=== PATIENT | male | born 1940 | race Caucasian/White ===

== ENCOUNTER 2016-12-12 14:19 | Inpatient (IN) ==
[2016-12-12] MEDS ORDERED: POTASSIUM CHLORIDE RIDER 10 MEQ in PREMIX 1 EACH IV PRN (16:30)
[2016-12-12] MEDS ORDERED: ACETAMINOPHEN 325 MG TABLET PO PRN (16:30)
[2016-12-12] MEDS ORDERED: MAGNESIUM SULF RIDER 2 GM in PREMIX 1 EACH IV PRN (16:30)
[2016-12-12] MEDS ORDERED: SODIUM CHLORIDE 0.9% 1,000 ML IV SCH (16:30)
[2016-12-12] MEDS ORDERED: MAGNESIUM SULF RIDER 4 GM in PREMIX 1 EACH IV PRN (16:30)
[2016-12-12] MEDS ORDERED: ONDANSETRON 4 MG/2 ML VIAL IV PRN (16:30)
[2016-12-12] MEDS ORDERED: BISACODYL 5 MG TABLET PO PRN (16:30)
[2016-12-12] MEDS ORDERED: HYDROmorphone 2 MG/1 ML VIAL IV PRN (16:41)
--- NOTE | 2016-12-12 16:44 | Hospitalist History & Physical ---
Assessment and Plan (1) Gastroenteritis Status: Acute Assessment and plan: Nausea vomiting and diarrhea thought to be secondary to gastroenteritis. Patient already received 3 L of normal saline and [facility] stat lactic acid. Hypotension improved with hydration. Start Cipro IV. Stat lactic acid. Suspect septic shock. Stool cultures for WBC, culture and C. difficile. Current Visit: Yes (2) Common bile duct dilation Status: Acute Assessment and plan: Dilated common bile duct on CT from [facility] measuring 14.7 mm. We will get a stat ultrasound or dilation of ducts and possible MRCP in am. Dr Rodriguez to see. patient on plavix Current Visit: Yes (3) Coronary artery disease Status: Acute Assessment and plan: cont asa, hold plavix Current Visit: No (4) Chronic back pain greater than 3 months duration Status: Acute Assessment and plan: chronic morphine 100 mg po bid, dilaudid for breakthrough pain Current Visit: No (5) Pulmonary fibrosis Status: Acute Assessment and plan: per abdominal ct Current Visit: Yes (6) COPD (chronic obstructive pulmonary disease) Status: Acute Assessment and plan: duoneb and oxygen Current Visit: Yes (7) Pulmonary hypertension, moderate to severe Status: Acute Assessment and plan: severe pulmonary htn last echo 2014 ef 65% with diastolic dysfunction, pap of 84 Current Visit: Yes (8) Chronic diastolic (congestive) heart failure Status: Acute Assessment and plan: bnp, cont hydration, repeat echo in am Current Visit: Yes (9) Hypotension Status: Acute Assessment and plan: improved with 3 liters of hydration, lactic acid stat, blood cx times 2, ua, cxr , cipro IV Current Visit: Yes History of Present Illness Chief complaint: nausea, vomiting and diarrhea History of present illness: Mr. Paredes is a 76 year old male with a history of hypertension and chronic pain presents to the emergency room at [facility] with complaints of weakness, poor appetite and nausea vomiting diarrhea. 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 He is normally up and ambulatory taking his dogs for walks. He had gone on vacation and he had been hardly eating for the last 3 days. He is having generalized weakness with profuse diarrhea, nausea and vomiting. [facility] did a chest x-ray which shows a thoracic transdermal stimulator. I also did a CT of the abdomen which showed a dilated common bile duct of 14.7 mm, pulmonary fibrosis and COPD with a distended gallbladder. Home Medications Medication Instructions Recorded Confirmed Type Aspirin EC Tab 81 mg PO DAILY #30 tablet 09/18/14 12/12/16 Rx Carvedilol [Coreg] 3.125 mg PO BID #60 tablet 09/18/14 12/12/16 Rx Clopidogrel [Plavix] 75 mg PO DAILY 12/12/16 12/12/16 History Docusate Sodium Cap [Colace Cap] 100 mg PO DAILY PRN 12/12/16 12/12/16 History Duloxetine HCl [Cymbalta] 60 mg PO BID 12/12/16 12/12/16 History Ergocalciferol (Vitamin D2) 50,000 unit PO Q7DAY 12/12/16 12/12/16 History [Vitamin D2] Furosemide Tab [Lasix Tab] 20 mg PO DAILY 12/12/16 12/12/16 History Metoclopramide Tab [Reglan Tab] 30 mg PO ACHS 12/12/16 12/12/16 History Mirtazapine 30 mg PO BEDTIME 12/12/16 12/12/16 History Morphine Sulfate [Morphine Sulfate 100 mg PO BID 12/12/16 12/12/16 History ER] Omeprazole 20 mg PO BID 12/12/16 12/12/16 History Ondansetron Tab [Zofran Tab] 4 mg PO Q4HR PRN 12/12/16 12/12/16 History Potassium Chloride Cap/Tab [K Dur] 20 meq PO DAILY 12/12/16 12/12/16 History Rosuvastatin [Crestor] 10 mg PO DIRECTED 12/12/16 12/12/16 History Allergies Allergy/AdvReac Type Severity Reaction Status Date / Time lisinopril Allergy Severe ANAPHYLAXIS Verified 12/12/16 16:38 Medical,Surgical,& Family Hx - Medical History Cardio: History of: [facility] (2), Cardiovascular Problems (Carotid stenosis) Neurology: History of: Neurological Problems (carotid disease.) Endocrine: No history of: Diabetes Mellitus (IDDM) Respiratory: History of: Bronchitis, COPD, Respiratory Problems (Pulmonary fibrosis) Musculoskeletal: History of: Back/Neck Problems (chronic back pain treated with epidural and nerve ablation), Herniated Disk, Musculoskeletal Problems Hematology: History of: Anemia (peripheral vascular stents, pain stimulator inserted), Clotting Problems (patient reports having stents put in left leg for blood clots.) - Surgical History Orthopedic Surgeries: Surgical HX of;: Total Knee Replacement (Right) Additional Surgical History: Stent to left leg - Family History Family History: Reports;: Family Cancer - Social History Smoking Status: Former smoker Frequency of Alcohol Use: None (Used to drink but quit 40 years ago) Marital Status: Single Lives With:: Alone Functional capacity: independent ambulation - Constitutional Constitutional: Present: fatigue, weakness, weight loss. Absent: fever(s), frequent falls, headache(s) - EENT Eyes: Absent: blurry vision, diplopia Ears: Present: decreased hearing. Absent: ear discharge Nose, mouth and throat: Absent: headache(s), sore throat - Cardiovascular Cardiovascular: Present: dyspnea, dyspnea on exertion. Absent: chest pain at rest, edema - Respiratory Respiratory: Present: dyspnea, dyspnea on exertion. Absent: cough, hemoptysis, change in phlegm color - Gastrointestinal Gastrointestinal: Present: diarrhea, nausea, vomiting. Absent: heartburn - Genitourinary Genitourinary: Present: dysuria. Absent: difficulty urinating - Musculoskeletal Musculoskeletal: Present: back pain - Neurological Neurological: Present: confusion. Absent: focal weakness, headache(s), syncope - Psychiatric Psychiatric: Present: depression. Absent: anxiety - Endocrine Endocrine: Present: cold intolerance, fatigue, polydipsia, polyuria. Absent: heat intolerance - Hematologic/Lymphatic Hematologic/Lymphatic: Present: easy bleeding, easy bruising Exam - Constitutional General appearance: no acute distress, under weight - Head Head exam: Present: normal inspection, normocephalic - Eye Eye exam: Present: EOMI. Absent: scleral icterus Pupils: Present: VERITO, normal accommodation - ENT ENT exam: Present: normal exam, normal external ear exam - Neck Neck exam: Absent: lymphadenopathy, thyromegaly - Respiratory Respiratory exam: Present: decreased breath sounds. Absent: rhonchi, wheezes - Cardiovascular Cardiovascular exam: Present: tachycardia. Absent: systolic murmur - GI/Abdominal GI/Abdominal exam: Present: normal bowel sounds, soft, other (liver enlarged ). Absent: tenderness - Extremities Exam Extremities exam: Absent: normal inspection, normal capillary refill - Neurological Exam Neurological exam: Present: alert, oriented X3, CN II-XII intact, reflexes normal. Absent: motor sensory deficit - Psychiatric Psychiatric exam: Present: depressed, flat affect - Skin Skin exam: Present: normal color, warm Results - Labs Labs: Outside records from [facility] WBC 5.4 hemoglobin 14.5, platelets 157, glucose 154, BUN 15, creatinine 1, calcium 8.2, sodium 133, potassium 3, chloride 97, bicarbonate 25, AST 25, ALT 24, total bili 0.5, proBNP 752, PTT 23, INR 1.08, - Diagnostic Findings Procedure: Chest x-ray: report reviewed by me (Thoracic transdermal stimulator, substernal goiter,), CT Abdomen and Pelvis: report reviewed by me (COPD, pulmonary fibrosis, distended gallbladder and common bile duct, ERCP needed for additional investigation with a dilated common bile duct of 14.7 mm, bilateral inguinal hernias, diverticulosis, neurostimulator,), CT: report reviewed by me ( Head CT normal aging of the brain)
--- NOTE | 2016-12-12 17:08 | XRay Report ---
XR chest 1V portable Indication: Shortness of breath. Chest one view: Comparison 09/17/2014. Epidural stimulators of the mid thoracic spine are again shown. Heart has decreased slightly in size, but at the same time, there is increased pulmonary vascular congestion with diffusely coarsened interstitial markings of the lungs. Part of this includes diffuse peribronchial thickening. No focal pneumonia shown. Lung volumes are low. Impression: Diffuse interstitial lung disease with low lung volumes, favor pulmonary edema superimposed on airways disease such as bronchitis. PROCEDURE INTERPRETED AT [facility] DEPARTMENT OF RADIOLOGY Final Report Signed by: Zachery Ulrich M.D.
--- NOTE | 2016-12-12 17:41 | Ultrasound Report ---
Exam: US abdomen Indication: Dilated common bile duct on recent CT. Comparison: None Technique: Using a transcutaneous probe, multiple grayscale and color Doppler images of the liver, gallbladder, spleen, pancreas, right kidney, left kidney, aorta, and inferior vena cava were captured and stored. Findings: Liver: The liver measures 13.7 . No focal mass is clearly demonstrated on the submitted images of the liver. Echotexture appears nearly isoechoic to the right renal cortex. Color flow is present within the interrogated portal and hepatic venous structures. Gallbladder: No gallstones are clearly demonstrated within the gallbladder. The gallbladder wall measures 3.8 mm. The common bile duct measures 6 mm. Pancreas: Pancreas is not identified secondary to bowel gas. Spleen: The spleen demonstrates no significant abnormality. The spleen measures: Length 10.9 cm cm Width 5.2 cm cm. Right kidney: The right kidney demonstrates no evidence of acute pathology. No hydronephrosis or perinephric fluid collection is present. The right kidney measures: Length: 9.6 cm cm Width: 4 cm cm AP: 4.6 cm cm. Left kidney: Left kidney demonstrates no evidence of acute pathology. No hydronephrosis or perinephric fluid collection is present. The left kidney measures: Length: 9.4 cmcm Width 4.6 cm cm AP 4.7 cmcm. Aorta: The aorta is not identified secondary to bowel gas. Inferior vena cava: Vena cava is not identified secondary to bowel gas. Conclusion: 1. Compatible given history, the extrahepatic bile duct is minimally enlarged. No cholelithiasis or choledocholithiasis is clearly demonstrated. Gallbladder wall thickening is a nonspecific finding and could reflect evidence of acute or chronic cholecystitis. 2. Pancreas is not visualized secondary to bowel gas. PROCEDURE INTERPRETED AT [facility] DEPARTMENT OF RADIOLOGY Final Report Signed by: Dr. Morgan Weiss
[2016-12-12 17:48] LABS: Apearance,Urine CLEAR (Clear); Bilirubin,Urine Negative (Negative); Blood, Urine Moderate mg/dL (Negative); Glucose,Urine (UA) Negative (Negative); Ketones,Urine Negative (Negative); Mucus,Urine Occasional /LPF (Occasional); Nitrite,Urine Negative (Negative); Protein,Urine Negative; RBC,Urine 73 /HPF (0-4); Urine Color Yellow (Yellow); Urine Specific Gravity 1.015 (1.001-1.035); Urine Urobilinogen < 2.0 EU/DL (0.2-1.0); WBC,Urine <1 /HPF (0-6)
[2016-12-12 17:50] LABS: Basophils % 0.2 % (0.0-0.8); Hematocrit 37.7 VOL% (42.0-52.0); Hemoglobin 13.3 GM/DL (14.0-18.0); Immature Granulocytes % 0.5 %; Immature Granulocytes Absolute 0.02 #; Lymphocytes # 0.5 10*3/uL (1.4-4.0); Lymphocytes % 12.2 % (21.2-54.2); Mean Corpuscular HGB Conc 35.3 GM/DL (32-36); Mean Corpuscular Hemoglobin 33 PG (27-34); Mean Corpuscular Volume 92.9 FL (87-102); Mean Platelet Volume 9.9 FL (9.6-12.0); Monocytes # 0.5 10*3/uL (0.11-0.8); Neutrophils # 3.1 10*3/uL (1.4-7.4); Neutrophils % 75.1 % (38.7-73.9); Platelet Count 136 T/CUMM (130-400); Red Blood Count 4.06 MC/CUMM (3.8-5.5); Red Cell Distribution Width 13.6 % (9.3-17.3); White Blood Count 4.2 T/CUMM (4-12)
[2016-12-12 17:59] LABS: ABG Base Excess -1.2 MMOL/L (-2.5-2.5); ABG HCO3 23.2 MMOL/L (20-26); ABG Oxygen Saturation 90.9 % (95-100); ABG PCO2 33.2 MM HG (35-48); ABG PH 7.433 (7.35-7.45); ABG PO2 62.6 MM HG (80-95); ABG TCO2 19.2 MMOL/L (23-27); Allen Test Positive
[2016-12-12 18:03] LABS: INR 1.1; PT Patient Result 11.6 SECS; Partial Thromboplastin Time 28.2 SECS (0-40)
[2016-12-12] MEDS: CIPROFLOXACIN INJ 400 MG in PREMIX 1 EACH IV SCH (18:13)
[2016-12-12] MEDS: PANTOPRAZOLE 40 MG TABLET PO SCH (18:14)
[2016-12-12 18:35] LABS: Albumin 3.1 G/DL (3.4-5.0); Magnesium 1.8 MG/DL (1.8-2.4); Osmolality,Calculated 272.8 MOS/KG (273-304); Potassium 3.1 MMOL/L (3.5-5.1); Thyroid Stimulating Hormone 0.911 uIU/ml (0.358-3.74); Total Protein 5.9 G/DL (6.4-8.3)
[2016-12-12] MEDS: ALBUTEROL/IPRATROPIUM 3 ML NEB RESP TX SCH (19:56)
[2016-12-12] MEDS ORDERED: POTASSIUM CHLORIDE INJ 40 MEQ in SODIUM CHLORIDE 0.9% 1,000 ML IV SCH (20:05)
[2016-12-12] MEDS ORDERED: NOREPINEPHRINE 8 MG in SODIUM CHLORIDE 0.9% 242 ML IV SCH (20:30)
[2016-12-12 21:34] LABS: Band Neutrophils 7 % (0-10); Lymphocytes 13 % (20-55); Metamyelocytes 1 %; Platelet Estimate Decreased; Segmented Neutrophils 68 % (50-85); Total Cells Counted 100
[2016-12-12 21:35] LABS: Hypochromasia 2+
[2016-12-12] MEDS: POTASSIUM CHLORIDE RIDER 10 MEQ in PREMIX 1 EACH IV SCH (22:09)
[2016-12-12] MEDS: SODIUM CHLOR 0.9% KCL 40 MEQ 40 MEQ/1,000 ML BAG IV SCH (22:10)
[2016-12-12] MEDS: MIRTAZAPINE 15 MG TABLET PO SCH (22:10)
[2016-12-12] MEDS: MORPHINE ER 100 MG TABLET PO SCH (22:10)
[2016-12-12] MEDS: ENOXAPARIN 40 MG/0.4 ML SYRINGE SUBCUT SCH (22:20)
[2016-12-13] MEDS: ALBUTEROL/IPRATROPIUM 3 ML NEB RESP TX SCH ×4 (00:45→20:22)
[2016-12-13] MEDS: POTASSIUM CHLORIDE RIDER 10 MEQ in PREMIX 1 EACH IV SCH ×5 (00:45→08:12)
[2016-12-13 03:47] LABS: Basophils % 0.2 % (0.0-0.8); Hematocrit 38.2 VOL% (42.0-52.0); Immature Granulocytes % 0.5 %; Immature Granulocytes Absolute 0.02 #; Lymphocytes # 0.7 10*3/uL (1.4-4.0); Lymphocytes % 14.9 % (21.2-54.2); Mean Corpuscular Hemoglobin 32 PG (27-34); Mean Platelet Volume 9.6 FL (9.6-12.0); Monocytes # 0.6 10*3/uL (0.11-0.8); Monocytes % 14.2 % (1.7-12.7); Neutrophils # 3.1 10*3/uL (1.4-7.4); Neutrophils % 70.2 % (38.7-73.9); Platelet Count 112 T/CUMM (130-400); Red Blood Count 4.02 MC/CUMM (3.8-5.5); Red Cell Distribution Width 13.7 % (9.3-17.3); White Blood Count 4.4 T/CUMM (4-12)
[2016-12-13 04:24] LABS: Bilirubin,Total 0.4 MG/DL (0.2-1.0); Osmolality,Calculated 273.7 MOS/KG (273-304); Potassium 3.2 MMOL/L (3.5-5.1); Risk Ratio 2.89; Total Protein 5.7 G/DL (6.4-8.3); VLDL CHOLESTEROL 21.2 MG/DL
[2016-12-13] MEDS: CIPROFLOXACIN INJ 400 MG in PREMIX 1 EACH IV SCH ×2 (05:11→16:12)
--- NOTE | 2016-12-13 06:45 | EKG Report ---
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
--- NOTE | 2016-12-13 07:17 | Ultrasound Report ---
US carotid duplex BI Indication: Carotid stenosis. Comparison: None. Technique: Multiple longitudinal and transverse real-time sonographic images of the bilateral carotid arterial systems are obtained with grayscale, spectral, and color Doppler analysis. Findings: Peak systolic velocities within the right CCA, proximal ICA, and distal ICA are 61, 119, and 119 cm/s respectively. Peak systolic velocities within the left CCA, proximal ICA, and distal ICA are 87, 77, and 118 cm/s respectively. ICA/CCA ratios on the right and left are 1.9 and 1.4 respectively. Antegrade flow demonstrated within the bilateral vertebral arteries. Grayscale imaging demonstrates mild bilateral atherosclerotic plaque. IMPRESSION: No convincing sonographic evidence of significant (50% or greater) narrowing of either cervical internal carotid artery. Indirect NASCET criteria utilized. PROCEDURE INTERPRETED AT [facility] DEPARTMENT OF RADIOLOGY Final Report Signed by: Dr Tang Peters
--- NOTE | 2016-12-13 09:42 | Hospitalist Progress Note ---
Assessment and Plan (1) Gastroenteritis Status: Acute Assessment and plan: Stool Chi growing gram-negative rods, continue Cipro IV moved to the floor and continue IV fluids. Current Visit: Yes (2) Common bile duct dilation Status: Acute Assessment and plan: Ultrasound shows minimal ductal dilatation. Total bili and liver enzymes remain normal Current Visit: Yes (3) Coronary artery disease Status: Acute Assessment and plan: restart asa and plavix Current Visit: No (4) Chronic back pain greater than 3 months duration Status: Acute Assessment and plan: chronic morphine 100 mg po bid, dilaudid for breakthrough pain Current Visit: No (5) Pulmonary fibrosis Status: Acute Assessment and plan: Chest x-ray shows diffuse interstitial disease. Current Visit: Yes (6) COPD (chronic obstructive pulmonary disease) Status: Acute Assessment and plan: duoneb and oxygen Current Visit: Yes (7) Pulmonary hypertension, moderate to severe Status: Acute Assessment and plan: severe pulmonary htn last echo 2014 ef 65% with diastolic dysfunction, pap of 84 Current Visit: Yes (8) Chronic diastolic (congestive) heart failure Status: Acute Assessment and plan: bnp 100, cont hydration, repeat echo pending Current Visit: Yes (9) Hypotension Status: Acute Assessment and plan: resolved Current Visit: Yes (10) Hypokalemia Status: Acute Assessment and plan: Still being replaced. Will repeat potassium after last finished with last rider Current Visit: Yes Hospitalist: Subjective Interval history: Patient having less diarrhea today. Complaining of a lot of back pain which is a chronic issue for him. I do not want him overly sedated due to his poor lung quality. Patient looks like he just had a gastroenteritis and looks stable we will move him out of the CCU today. Exam - Constitutional Vitals: Period Temp Pulse Resp BP Sys/[place] Pulse Ox Last 24 Hr 97.5 F-98.4 F 80-98 18-24 79-143/55-88 87-100 Exam: Heart Rate-[RRR] Lungs-[diminished ] GI-[+bs soft, NT] Ext-[no edema] Neuro [Motor 5/5], [alert and oriented times 3] psych [normal mood and affect] General [no acute distress] Results - Labs CBC & BMP: 12/13/16 03:24 12/13/16 03:24 Lab Results: I have reviewed the past 24 hour labs Labs: Stool shows no WBCs, stool culture positive for gram-negative rods, stool is guaiac negative for blood, C. difficile is negative. - Diagnostic Findings Procedure: Ultrasound: report reviewed by me, pending (Gallbladder ultrasound shows mild extra biliary duct dilatation, gallbladder wall thickening noted), X- ray: pending
[2016-12-13] MEDS: ROSUVASTATIN 10 MG TABLET PO SCH (09:55)
[2016-12-13] MEDS: MORPHINE ER 100 MG TABLET PO SCH ×2 (09:55→20:57)
[2016-12-13] MEDS: PANTOPRAZOLE 40 MG TABLET PO SCH (09:55)
[2016-12-13] MEDS: CLOPIDOGREL 75 MG TABLET PO SCH (10:02)
[2016-12-13] MEDS: DULoxetine 30 MG CAPSULE PO SCH ×2 (10:02→20:57)
[2016-12-13] MEDS: ASPIRIN EC 81 MG TABLET PO SCH (10:02)
[2016-12-13] MEDS: SODIUM CHLOR 0.9% KCL 40 MEQ 40 MEQ/1,000 ML BAG IV SCH (13:18)
[2016-12-13] MEDS: POTASSIUM CHLORIDE 20 MEQ TABLET PO PRN ×3 (13:24→17:58)
[2016-12-13] MEDS: ENOXAPARIN 40 MG/0.4 ML SYRINGE SUBCUT SCH (16:12)
--- NOTE | 2016-12-13 20:12 | ECHO Report ---
Epifanio Paredes Exam Date: 12/13/2016 08:18 Referring Physician: Technologist: Nel Sales RDCS Age: 76 Ht (in): 67 Wt (lb): 171 Gender: M Exam Location: [facility] Echo Indications: Chronic diastolic (congestive) heart failure, Weakness, Gastronenteritis, Common bile duct dilation, CAD, Chronic back pain, COPD, Pulmonary fibrosis, Pulmonary htn BP: 143 / 88 HR: 87 Rhythm: Sinus Technical Quality: Fair IMPRESSIONS Normal LV systolic function, ejection fraction 65%. Grade 1/4 diastolic dysfunction. Mild biatrial enlargement. Mild mitral, aortic, tricuspid regurgitation. Aortic sclerosis without stenosis. MEASUREMENTS (Male / Female) Normal Values 2D ECHO LV Diastolic Diameter PLAX 4.7 cm 4.2 - 5.9 / 3.9 - 5.3 cm LV Systolic Diameter PLAX 2.9 cm LV Fractional Shortening PLAX 38.6 % IVS Diastolic Thickness 1.0 cm 0.6 - 1.0 / 0.6 - 0.9 cm LVPW Diastolic Thickness 1.0 cm 0.6 - 1.0 / 0.6 - 0.9 cm RV Internal Dim ED PLAX 3.3 cm Aortic Root Diameter 3.4 cm LA Systolic Diameter LX 4.4 cm 3.0 - 4.0 / 2.7 - 3.8 cm DOPPLER TR Peak Velocity 356.0 cm/s TR Peak Gradient 50.7 mmHg FINDINGS Left Ventricle Normal left ventricular cavity size. Normal left ventricular wall thickness. Left ventricular ejection fraction is estimated at 65 %. Right Ventricle Mildly increased right ventricular size. Right Atrium Mildly increased right atrial size. Left Atrium Mildly increased left atrial size. Mitral Valve Morphologically normal mitral valve. Mild mitral valve regurgitation. Aortic Valve Moderate aortic valve calcification. Mild aortic valve regurgitation. No aortic valve stenosis. Tricuspid Valve Morphologically normal tricuspid valve. Mild tricuspid valve regurgitation. Tricuspid regurgitation velocities suggest a PAP of 61 mmHg. Pulmonic Valve Morphologically normal pulmonic valve without significant stenosis. There is no pulmonic regurgitation. Pericardium Normal pericardium without effusion. Aorta Normal ascending aorta dimension. Pau Clark MD (Electronically Signed) Final Date: 13 December 2016 20:10
[2016-12-13] MEDS: MIRTAZAPINE 15 MG TABLET PO SCH (20:57)
[2016-12-13] MEDS ORDERED: NON-FORMULARY MEDICATION (Duloxetine Hcl [Cymbalta] 60 MG) PO SCH (21:00)
[2016-12-14] MEDS: ALBUTEROL/IPRATROPIUM 3 ML NEB RESP TX SCH ×4 (00:27→20:09)
[2016-12-14 00:46] LABS: Basophils % 0.4 % (0.0-0.8); Eosinophils % 0.4 % (0.00-10.9); Hematocrit 36.2 VOL% (42.0-52.0); Hemoglobin 12.8 GM/DL (14.0-18.0); Immature Granulocytes % 0.4 %; Immature Granulocytes Absolute 0.01 #; Lymphocytes # 0.6 10*3/uL (1.4-4.0); Lymphocytes % 19.4 % (21.2-54.2); Mean Corpuscular HGB Conc 35.4 GM/DL (32-36); Mean Corpuscular Hemoglobin 33 PG (27-34); Mean Corpuscular Volume 92.6 FL (87-102); Monocytes # 0.5 10*3/uL (0.11-0.8); Monocytes % 17.3 % (1.7-12.7); Neutrophils # 1.8 10*3/uL (1.4-7.4); Neutrophils % 62.1 % (38.7-73.9); Platelet Count 112 T/CUMM (130-400); Red Blood Count 3.91 MC/CUMM (3.8-5.5); Red Cell Distribution Width 13.7 % (9.3-17.3); White Blood Count 2.8 T/CUMM (4-12)
[2016-12-14 01:07] LABS: Alanine Aminotransferase 17 U/L (16-61); Albumin 2.6 G/DL (3.4-5.0); Alkaline Phosphatase 65 U/L (45-117); Aspartate Amino Transferase 25 U/L (0-37); Bilirubin,Total < 0.39 MG/DL (0.2-1.0); Blood Urea Nitrogen 6 MG/DL (7-18); Calcium 7.8 MG/DL (8.5-10.1); Glucose 118 MG/DL (74-106); Osmolality,Calculated 281.1 MOS/KG (273-304); Potassium 3.2 MMOL/L (3.5-5.1); Sodium 142 MMOL/L (136-145); Total Protein 5.2 G/DL (6.4-8.3)
[2016-12-14] MEDS: SODIUM CHLOR 0.9% KCL 40 MEQ 40 MEQ/1,000 ML BAG IV SCH (01:38)
[2016-12-14 01:55] LABS: Band Neutrophils 1 % (0-10); Eosinophils 1 % (0-10); Lymphocytes 17 % (20-55); Segmented Neutrophils 71 % (50-85)
[2016-12-14 01:56] LABS: Platelet Estimate Adequate
[2016-12-14 01:57] LABS: Hypochromasia Slight; Total Cells Counted 100
[2016-12-14] MEDS ORDERED: POTASSIUM BICARB EFFERVESCENT 25 MEQ TABLET PO ONE ×3 (02:00→06:00)
[2016-12-14] MEDS: CIPROFLOXACIN INJ 400 MG in PREMIX 1 EACH IV SCH ×2 (04:07→16:21)
[2016-12-14] MEDS: PANTOPRAZOLE 40 MG TABLET PO SCH (09:12)
[2016-12-14] MEDS: MORPHINE ER 100 MG TABLET PO SCH ×2 (09:12→21:11)
[2016-12-14] MEDS: ASPIRIN EC 81 MG TABLET PO SCH (09:12)
[2016-12-14] MEDS: DULoxetine 30 MG CAPSULE PO SCH ×2 (09:12→21:11)
[2016-12-14] MEDS: CLOPIDOGREL 75 MG TABLET PO SCH (09:12)
--- NOTE | 2016-12-14 11:30 | Hospitalist Progress Note ---
Assessment and Plan (1) Gastroenteritis Status: Acute Assessment and plan: 1)GNR in stool- culture set up for stool pathogens, lab should have results tomorrow. On cipro. Diarrhea resolved, eating well. 2)tick between toes- no rash, no more fever, no headache, but he does have low platelets and WBC. Begin doxy. 3)hypokalemia- replacing and recheck pending. 4)hypotension- resolved 5)COPD/pHTN/puolmonary fibrosis- compensated 6)chronic back pain- on meds, no complaint this morning. Current Visit: Yes (2) Tick bite Status: Acute Current Visit: Yes (3) Pancytopenia Status: Acute Current Visit: Yes (4) Common bile duct dilation Status: Acute Current Visit: Yes (5) Pulmonary fibrosis Status: Acute Current Visit: Yes (6) COPD (chronic obstructive pulmonary disease) Status: Acute Current Visit: Yes (7) Pulmonary hypertension, moderate to severe Status: Acute Current Visit: Yes (8) Hypokalemia Status: Acute Current Visit: Yes Hospitalist: Subjective Interval history: Mr Paredes is feeling much beter and tolerated a regular diet this morning. He has been up and walked without ataxia using his cane. He has 2 GNR in stool culture, results pending. Also, the wound care nurse found a tick between 2 of his toes without any surrounding skin changes. It has been removed. Exam - Constitutional Vitals: Period Temp Pulse Resp BP Sys/[place] Pulse Ox Last 24 Hr 97.1 F-98.6 F 73-87 16-22 95-128/57-71 93-100 General appearance: normal weight, no acute distress - Head Head exam: Present: normocephalic, atraumatic - Eye Eye exam: Present: EOMI. Absent: scleral icterus - Respiratory Respiratory exam: Present: clear to auscultation bilaterally - Cardiovascular Cardiovascular exam: Present: regular rate and rhythm - GI/Abdominal GI/Abdominal exam: Present: normal bowel sounds, soft. Absent: tenderness - Extremities Exam Extremities exam: Absent: edema - Neurological Exam Neurological exam: Present: alert, oriented X3 - Psychiatric Psychiatric exam: Present: normal affect, normal mood - Skin Skin exam: Present: warm, dry. Absent: rash Results - Labs CBC & BMP: 12/14/16 00:16 12/14/16 00:16 Lab Results: I have reviewed the past 24 hour labs
[2016-12-14] MEDS: DOXYCYCLINE HYCLATE INJ 100 MG in SODIUM CHLORIDE 0.9% 100 ML IV SCH (13:38)
[2016-12-14] MEDS: ENOXAPARIN 40 MG/0.4 ML SYRINGE SUBCUT SCH (16:21)
[2016-12-14] MEDS: MIRTAZAPINE 15 MG TABLET PO SCH (21:11)
[2016-12-15] MEDS: DOXYCYCLINE HYCLATE INJ 100 MG in SODIUM CHLORIDE 0.9% 100 ML IV SCH ×2 (00:02→12:26)
[2016-12-15] MEDS: CIPROFLOXACIN INJ 400 MG in PREMIX 1 EACH IV SCH ×2 (06:34→16:00)
[2016-12-15 07:08] LABS: Basophils % 0.7 % (0.0-0.8); Eosinophils # 0.1 10*3/uL (0.0-0.87); Eosinophils % 1.4 % (0.00-10.9); Hemoglobin 13.3 GM/DL (14.0-18.0); Immature Granulocytes % 1.2 %; Immature Granulocytes Absolute 0.05 #; Lymphocytes % 23.1 % (21.2-54.2); Mean Corpuscular Hemoglobin 32 PG (27-34); Mean Corpuscular Volume 91.6 FL (87-102); Mean Platelet Volume 10.2 FL (9.6-12.0); Monocytes # 0.6 10*3/uL (0.11-0.8); Monocytes % 14.5 % (1.7-12.7); Neutrophils # 2.5 10*3/uL (1.4-7.4); Neutrophils % 59.1 % (38.7-73.9); Platelet Count 128 T/CUMM (130-400); Red Blood Count 4.15 MC/CUMM (3.8-5.5); White Blood Count 4.3 T/CUMM (4-12)
[2016-12-15] MEDS: ALBUTEROL/IPRATROPIUM 3 ML NEB RESP TX SCH ×3 (07:44→13:41)
[2016-12-15 07:47] LABS: Albumin 2.9 G/DL (3.4-5.0); Bilirubin,Total 0.7 MG/DL (0.2-1.0); Calcium 8.3 MG/DL (8.5-10.1); Osmolality,Calculated 281.1 MOS/KG (273-304); Potassium 3.2 MMOL/L (3.5-5.1); Total Protein 5.6 G/DL (6.4-8.3)
[2016-12-15 08:22] LABS: Band Neutrophils 1 % (0-10); Lymphocytes 20 % (20-55); Segmented Neutrophils 68 % (50-85); Total Cells Counted 100
[2016-12-15 08:23] LABS: Microcytosis Slight; Ovalocytes Slight; Platelet Estimate Adequate
[2016-12-15 08:24] LABS: Hypochromasia Slight
[2016-12-15] MEDS: ROSUVASTATIN 10 MG TABLET PO SCH (09:20)
[2016-12-15] MEDS: MORPHINE ER 100 MG TABLET PO SCH ×2 (09:20→21:09)
[2016-12-15] MEDS: DULoxetine 30 MG CAPSULE PO SCH ×2 (09:21→21:09)
[2016-12-15] MEDS: ASPIRIN EC 81 MG TABLET PO SCH (09:21)
[2016-12-15] MEDS: CLOPIDOGREL 75 MG TABLET PO SCH (09:21)
[2016-12-15] MEDS: PANTOPRAZOLE 40 MG TABLET PO SCH (09:21)
[2016-12-15] MEDS: POTASSIUM CHLORIDE 20 MEQ TABLET PO PRN (09:21)
--- NOTE | 2016-12-15 12:54 | Gastrointestinal Consult Note ---
<Josiane Barreto Liz - Last Filed: 12/15/16 12:48> Assessment and Plan (1) Abdominal pain Status: Acute Assessment and plan: 12/15-admitted 4 days ago with complaints of upper abdominal pain, nausea, vomiting and diarrhea. Initial report on CT scan as below, with dilated common bile duct and normal LFTs. Ultrasound on admission findings noted as below. LFTs remain unremarkable. Noted today to have positive for Salmonella on stool cultures with Cipro initiated. Vibramycin initiated for tick bite. Prior endoscopy done within the past [address] Rivera in [place]. Requesting results from [place] far ER visit prior to transfer as well as endoscopy records. Plan an addendum to followed by Dr. Rodriguez. Current Visit: Yes History of Present Illness Chief complaint: Abdominal pain, nausea and vomiting History of present illness: Mr. Paredes is a 76 year old male who was admitted to the hospital 12/12 with an episode of increased weakness, nausea and vomiting, diarrhea and abdominal pain. Patient is a fair historian however his son is at bedside and provides historical information. Information is also obtained from chart review. Patient reportedly lives in a camper trailer in the backyard of his son and [id number]. His [id number] is a nurse and oversees his care. Patient has been fairly active until several days ago when he had an onset of upper abdominal pain that he states radiated around to his back and into his shoulder blades. Associated with this pain was also onset of nausea and vomiting as well as profuse watery diarrhea. Patient presented to [facility] for evaluation and at that time had a CT of the abdomen which reported to show a dilated common bile duct at 14.7 mm. Patient was then transferred to our facility for further evaluation. No records were sent with the patient at that time therefore unable to review the films are report. Upon admission, patient was noted to have normal LFTs. He also had an abdominal ultrasound done which shows minimally enlarged extrahepatic bile duct with no cholelithiasis or choledocholithiasis as well as nonspecific gallbladder wall thickening. He was also noted to have a common bile duct of 6 mm. Patient also had stool cultures done upon admission and results noted today to be positive for Salmonella, in which she has had Cipro initiated for this. Patient is also had Vibramycin initiated after findings of a tick between his toes. Patient signed states that over the last several months he has had several episodes of the same type of illness however after several days of being sick with nausea, vomiting and diarrhea it would then improve and he will get back to eating and feeling better only to relapse not long after that. He denies any melena or hematochezia with the diarrhea. He denies any coffee- ground emesis or hematemesis with the nausea and vomiting episodes. He states that his weight has fluctuated up and down with each illness. Reportedly his approximately a year ago and his nutrition has declined since this time. He was inpatient in [facility] in April with the same symptoms however patient signed states that they felt this was gastroenteritis and no further testing was done. He was treated as outpatient in June with similar symptoms as well. Patient is noted to be on Plavix for which he states is related to stents placed in his leg in the past and signed states that he does have some carotid artery blockages. Patient is also reported to have a history of pulmonary fibrosis according to the CT report from [facility]. He also has a reported history of COPD. Recent endoscopy in last [address] Rivera with no acute findings on upper scope and report of polyp removal on lower scope , told to return in 3 years. Home Medications Medication Instructions Recorded Confirmed Type Aspirin EC Tab 81 mg PO DAILY #30 tablet 09/18/14 12/12/16 Rx Carvedilol [Coreg] 3.125 mg PO BID #60 tablet 09/18/14 12/12/16 Rx Clopidogrel [Plavix] 75 mg PO DAILY 12/12/16 12/12/16 History Docusate Sodium Cap [Colace Cap] 100 mg PO DAILY PRN 12/12/16 12/12/16 History Duloxetine HCl [Cymbalta] 60 mg PO BID 12/12/16 12/12/16 History Ergocalciferol (Vitamin D2) 50,000 unit PO Q7DAY 12/12/16 12/12/16 History [Vitamin D2] Furosemide Tab [Lasix Tab] 20 mg PO DAILY 12/12/16 12/12/16 History Metoclopramide Tab [Reglan Tab] 30 mg PO ACHS 12/12/16 12/12/16 History Mirtazapine 30 mg PO BEDTIME 12/12/16 12/12/16 History Morphine Sulfate [Morphine Sulfate 100 mg PO BID 12/12/16 12/12/16 History ER] Omeprazole 20 mg PO BID 12/12/16 12/12/16 History Ondansetron Tab [Zofran Tab] 4 mg PO Q4HR PRN 12/12/16 12/12/16 History Potassium Chloride Cap/Tab [K Dur] 20 meq PO DAILY 12/12/16 12/12/16 History Rosuvastatin [Crestor] 10 mg PO DIRECTED 12/12/16 12/12/16 History Allergies Allergy/AdvReac Type Severity Reaction Status Date / Time lisinopril Allergy Severe ANAPHYLAXIS Verified 12/12/16 16:38 Medical,Surgical,& Family Hx - Medical History Cardio: History of: CHF, NV (2), Cardiovascular Problems (Carotid stenosis) Psychological: History of: Anxiety Disorders, Depression Neurology: History of: Neurological Problems (carotid disease.) HEENT: History of: Ear Problem ([place]) Endocrine: No history of: Diabetes Mellitus (IDDM) Respiratory: History of: Bronchitis, COPD, Respiratory Problems (Pulmonary fibrosis) Musculoskeletal: History of: Back/Neck Problems (chronic back pain treated with epidural and nerve ablation), Herniated Disk, Musculoskeletal Problems Hematology: History of: Anemia (peripheral vascular stents, pain stimulator inserted), Clotting Problems (patient reports having stents put in left leg for blood clots.) - Surgical History Cardiac Surgeries: Sugical HX of: Cardiac Catheterization Orthopedic Surgeries: Surgical HX of;: Total Knee Replacement (Right) - Family History Family History: Reports;: Family Cancer, Family Heart Disease, Family Stroke - Social History Smoking Status: Former smoker Frequency of Alcohol Use: None (Used to drink but quit 40 years ago) Type of Drug Use: None 12 point system: reviewed and no additional remarkable complaints except as stated - Constitutional Constitutional: Present: as per HPI, fatigue, weakness - EENT Eyes: Present: as per HPI Ears: Present: as per HPI Nose, mouth and throat: Present: as per HPI - Cardiovascular Cardiovascular: Present: as per HPI - Respiratory Respiratory: Present: as per HPI - Gastrointestinal Gastrointestinal: Present: as per HPI, abdominal pain, diarrhea, nausea, vomiting - Genitourinary Genitourinary: Present: as per HPI - Musculoskeletal Musculoskeletal: Present: as per HPI, back pain - Neurological Neurological: Present: as per HPI - Psychiatric Psychiatric: Present: as per HPI - Endocrine Endocrine: Present: as per HPI - Hematologic/Lymphatic Hematologic/Lymphatic: Present: as per HPI Exam - Constitutional Vitals: Period Temp Pulse Resp BP Sys/Morocho Pulse Ox Last 24 Hr 96.9 F-98.6 F 69-107 16-22 105-161/64-84 86-99 General appearance: normal weight, no acute distress - Head Head exam: Present: normal inspection, normocephalic - Eye Eye exam: Present: other (Lids and conjunctive are unremarkable). Absent: scleral icterus - ENT ENT exam: Present: normal exam, normal oropharynx - Neck Neck exam: Present: normal inspection - Respiratory Respiratory exam: Present: clear to auscultation bilaterally. Absent: rales, rhonchi, wheezes - Cardiovascular Cardiovascular exam: Present: regular rate and rhythm. Absent: diastolic murmur , JVD, systolic murmur - GI/Abdominal GI/Abdominal exam: Present: normal bowel sounds, soft. Absent: ascites, distended, mass, organomegaly, tenderness - Extremities Exam Extremities exam: Present: normal inspection, full ROM - Back Exam Back exam: Present: normal inspection - Neurological Exam Neurological exam: Present: alert, oriented X3 - Psychiatric Psychiatric exam: Present: normal affect, normal mood - Skin Skin exam: Present: normal color, warm, dry Results - Labs CBC & BMP: 12/15/16 06:46 12/15/16 06:45 Lab Results: I have reviewed the past 24 hour labs - Diagnostic Findings Procedure: Ultrasound: report reviewed by me Specialty Discharge - Follow Up or Referrals <Berry Rodriguez - Last Filed: 12/15/16 18:31> History of Present Illness Chief complaint: 3030 History of present illness: Mr. Paredes is a 76 year old male Exam - Constitutional Vitals: Period Temp Pulse Resp BP Sys/Morocho Pulse Ox Last 24 Hr 96.9 F-98.6 F 58-107 16-22 100-161/60-84 90-99 Results - Labs CBC & BMP: 12/15/16 06:46 12/15/16 06:45
[2016-12-15] MEDS ORDERED: ALBUTEROL/IPRATROPIUM 3 ML NEB RESP TX PRN (14:45)
--- NOTE | 2016-12-15 14:48 | Hospitalist Progress Note ---
Assessment and Plan (1) Salmonella enteritis Status: Acute Assessment and plan: Stool sample has resulted as salmonella Continue ciprofloxacin GI on board Now also with blood culture 1 of 2 growing gram negative rods, will repeat culture Current Visit: Yes (2) Pulmonary hypertension, moderate to severe Status: Acute Current Visit: Yes (3) Hypokalemia Status: Acute Assessment and plan: Replacing Current Visit: Yes (4) Tick bite Status: Acute Assessment and plan: On doxycycline Current Visit: Yes (5) Pancytopenia Status: Acute Current Visit: Yes (6) Abdominal pain Status: Acute Assessment and plan: OSH CT read as dilated common bile duct Abdominal ultrasound here with only minimal enlargement LFTs ok GI consulted Treating salmonella in stool with cipro Current Visit: Yes Hospitalist: Subjective Interval history: No acute events overnight. Patient feeling better today. He is eager for discharge. Exam - Constitutional Vitals: Period Temp Pulse Resp BP Sys/Morocho Pulse Ox Last 24 Hr 96.9 F-98.6 F 58-107 16-22 105-161/64-84 90-99 General appearance: normal weight - Head Head exam: Present: normocephalic, atraumatic - Eye Eye exam: Present: EOMI Pupils: Present: VERITO - ENT ENT exam: Present: normal exam - Neck Neck exam: Present: normal inspection - Respiratory Respiratory exam: Present: clear to auscultation bilaterally. Absent: rhonchi, wheezes - Cardiovascular Cardiovascular exam: Present: regular rate and rhythm - GI/Abdominal GI/Abdominal exam: Present: normal bowel sounds, soft. Absent: tenderness, rebound - Extremities Exam Extremities exam: Present: normal inspection - Back Exam Back exam: Present: normal inspection - Neurological Exam Neurological exam: Present: alert, oriented X3 - Psychiatric Psychiatric exam: Present: normal affect, normal mood - Skin Skin exam: Present: warm, intact Results - Labs CBC & BMP: 12/15/16 06:46 12/15/16 06:45 Specialty Discharge - Follow Up or Referrals
[2016-12-15] MEDS: ENOXAPARIN 40 MG/0.4 ML SYRINGE SUBCUT SCH (15:58)
[2016-12-15] MEDS: MIRTAZAPINE 15 MG TABLET PO SCH (21:09)
[2016-12-16] MEDS: DOXYCYCLINE HYCLATE INJ 100 MG in SODIUM CHLORIDE 0.9% 100 ML IV SCH ×2 (00:37→13:39)
[2016-12-16] MEDS: CIPROFLOXACIN INJ 400 MG in PREMIX 1 EACH IV SCH ×2 (06:34→17:29)
[2016-12-16 06:48] LABS: Basophils % 0.7 % (0.0-0.8); Eosinophils # 0.1 10*3/uL (0.0-0.87); Eosinophils % 2.8 % (0.00-10.9); Hematocrit 36.7 VOL% (42.0-52.0); Hemoglobin 12.8 GM/DL (14.0-18.0); Immature Granulocytes % 0.9 %; Immature Granulocytes Absolute 0.04 #; Lymphocytes # 1.4 10*3/uL (1.4-4.0); Lymphocytes % 32.2 % (21.2-54.2); Mean Corpuscular HGB Conc 34.9 GM/DL (32-36); Mean Corpuscular Hemoglobin 32 PG (27-34); Mean Corpuscular Volume 92.9 FL (87-102); Monocytes # 0.6 10*3/uL (0.11-0.8); Monocytes % 13.3 % (1.7-12.7); Neutrophils # 2.1 10*3/uL (1.4-7.4); Neutrophils % 50.1 % (38.7-73.9); Platelet Count 123 T/CUMM (130-400); Red Blood Count 3.95 MC/CUMM (3.8-5.5); Red Cell Distribution Width 13.9 % (9.3-17.3); White Blood Count 4.2 T/CUMM (4-12)
[2016-12-16 07:11] LABS: Eosinophils 3 % (0-10); Hypochromasia 2+; Lymphocytes 38 % (20-55); Microcytosis Slight; Platelet Estimate Decreased; Polychromasia Slight; Segmented Neutrophils 51 % (50-85); Target Cells Slight; Total Cells Counted 100
[2016-12-16 07:16] LABS: Calcium 8.1 MG/DL (8.5-10.1); Magnesium 1.8 MG/DL (1.8-2.4); Osmolality,Calculated 282.8 MOS/KG (273-304); Potassium 3.5 MMOL/L (3.5-5.1)
--- NOTE | 2016-12-16 08:46 | Gastrointestinal Progress Note ---
<Josiane Barreto Liz - Last Filed: 12/16/16 08:44> Assessment and Plan (1) Abdominal pain Status: Acute Assessment and plan: 12/16-no complaints of abdominal pain. Tolerating diet well. Records received and reviewed as noted below. Continue IV antibiotics at this time. Plan an addendum follow Dr. Rodriguez. 12/15-admitted 4 days ago with complaints of upper abdominal pain, nausea, vomiting and diarrhea. Initial report on CT scan as below, with dilated common bile duct and normal LFTs. Ultrasound on admission findings noted as below. LFTs remain unremarkable. Noted today to have positive for Salmonella on stool cultures with Cipro initiated. Vibramycin initiated for tick bite. Prior endoscopy done within the past [address] Rivera in [place]. Requesting results from [place] far ER visit prior to transfer as well as endoscopy records. Plan an addendum to followed by Dr. Rodriguez. Current Visit: Yes Gastroenterology - PN: Subj Interval history: CC: Abdominal pain Patient is seen, awake and alert sitting up in bed. States he had an uneventful night and is feeling much better today. He denies any abdominal pain , nausea vomiting. He is tolerating his diet at this time and appetite is slowly improving. He states that he has not had any more diarrhea stools since yesterday. He is afebrile without leukocytosis. Records were received from [facility] and CT report was noted without contrast she showed a dilated common bile duct at 14.7 mm without findings of stones and in the presence of some gallbladder wall thickening. Patient's LFTs were unremarkable as well at that time. He was also noted to have an EGD and a C scope done in October of last year with reported findings of gastritis with negative H. pylori as well as a polyp at hepatic flexure however no pathology report was found related to that. His LFTs are unremarkable today. He is denying any abdominal pain and states he has not had this since admission. Abdomen is soft, nontender. ROS: Denies shortness of breath or chest pain Exam (Progress Note) - Constitutional Vitals: Period Temp Pulse Resp BP Sys/Morocho Pulse Ox Last 24 Hr 97.3 F-97.7 F 58-92 16-22 100-142/60-84 90-98 General appearance: normal weight, no acute distress - Head Head exam: Present: normal inspection, normocephalic - Eye Eye exam: Present: other (Lids and conjunctive are unremarkable). Absent: scleral icterus - ENT ENT exam: Present: normal exam, normal oropharynx - Neck Neck exam: Present: normal inspection - Respiratory Respiratory exam: Present: clear to auscultation bilaterally. Absent: rales, rhonchi, wheezes - Cardiovascular Cardiovascular exam: Present: regular rate and rhythm. Absent: diastolic murmur , JVD, systolic murmur - GI/Abdominal GI/Abdominal exam: Present: normal bowel sounds, soft. Absent: ascites, distended, mass, organomegaly, tenderness - Extremities Exam Extremities exam: Present: normal inspection, full ROM - Back Exam Back exam: Present: normal inspection - Neurological Exam Neurological exam: Present: alert, oriented X3 - Psychiatric Psychiatric exam: Present: normal affect, normal mood - Skin Skin exam: Present: normal color, warm, dry Results - Labs CBC & BMP: 12/16/16 06:22 12/16/16 06:22 Lab Results: I have reviewed the past 24 hour labs Specialty Discharge - Follow Up or Referrals <Berry Rodriguez - Last Filed: 12/16/16 16:32> Exam (Progress Note) - Constitutional Vitals: Period Temp Pulse Resp BP Sys/Morocho Pulse Ox Last 24 Hr 96.6 F-98.1 F 71-84 18-20 90-142/62-84 90-94 Results - Labs CBC & BMP: 12/16/16 06:22 12/16/16 06:22
[2016-12-16] MEDS: DULoxetine 30 MG CAPSULE PO SCH ×2 (08:58→20:59)
[2016-12-16] MEDS: MORPHINE ER 100 MG TABLET PO SCH ×2 (08:58→20:59)
[2016-12-16] MEDS: CLOPIDOGREL 75 MG TABLET PO SCH (08:58)
[2016-12-16] MEDS: PANTOPRAZOLE 40 MG TABLET PO SCH (08:59)
[2016-12-16] MEDS: ASPIRIN EC 81 MG TABLET PO SCH (08:59)
--- NOTE | 2016-12-16 16:44 | Hospitalist Progress Note ---
Assessment and Plan (1) Salmonella enteritis Status: Acute Assessment and plan: Stool sample has resulted as salmonella Continue ciprofloxacin GI on board Now also with blood culture 1 of 2 growing salmonella F/u repeat cultures Current Visit: Yes (2) Pulmonary hypertension, moderate to severe Status: Acute Current Visit: Yes (3) Hypokalemia Status: Acute Assessment and plan: Replacing Current Visit: Yes (4) Tick bite Status: Acute Assessment and plan: On doxycycline Current Visit: Yes (5) Pancytopenia Status: Acute Current Visit: Yes (6) Abdominal pain Status: Acute Assessment and plan: OSH CT read as dilated common bile duct Abdominal ultrasound here with only minimal enlargement LFTs ok GI consulted Treating salmonella in stool with cipro Current Visit: Yes Hospitalist: Subjective Interval history: No acute events overnight. He denies abdominal pain or diarrhea. No recent bowel movements. Exam - Constitutional Vitals: Period Temp Pulse Resp BP Sys/Morocho Pulse Ox Last 24 Hr 96.6 F-98.1 F 71-84 18-20 90-142/62-84 90-94 General appearance: normal weight - Head Head exam: Present: normocephalic, atraumatic - Eye Eye exam: Present: EOMI Pupils: Present: VERITO - ENT ENT exam: Present: normal exam - Neck Neck exam: Present: normal inspection - Respiratory Respiratory exam: Present: clear to auscultation bilaterally. Absent: rhonchi, wheezes - Cardiovascular Cardiovascular exam: Present: regular rate and rhythm - GI/Abdominal GI/Abdominal exam: Present: normal bowel sounds, soft. Absent: tenderness, rebound - Extremities Exam Extremities exam: Present: normal inspection - Back Exam Back exam: Present: normal inspection - Neurological Exam Neurological exam: Present: alert, oriented X3 - Psychiatric Psychiatric exam: Present: normal affect, normal mood - Skin Skin exam: Present: warm, intact Results - Labs CBC & BMP: 12/16/16 06:22 12/16/16 06:22 Specialty Discharge - Follow Up or Referrals
[2016-12-16] MEDS: ENOXAPARIN 40 MG/0.4 ML SYRINGE SUBCUT SCH (17:29)
[2016-12-16] MEDS: MIRTAZAPINE 15 MG TABLET PO SCH (20:59)
[2016-12-17] MEDS: DOXYCYCLINE HYCLATE INJ 100 MG in SODIUM CHLORIDE 0.9% 100 ML IV SCH ×2 (00:06→13:41)
[2016-12-17] MEDS: CIPROFLOXACIN INJ 400 MG in PREMIX 1 EACH IV SCH ×2 (04:03→17:51)
[2016-12-17] MEDS: PANTOPRAZOLE 40 MG TABLET PO SCH (09:01)
[2016-12-17] MEDS: ASPIRIN EC 81 MG TABLET PO SCH (09:01)
[2016-12-17] MEDS: DULoxetine 30 MG CAPSULE PO SCH ×2 (09:01→20:42)
[2016-12-17] MEDS: ROSUVASTATIN 10 MG TABLET PO SCH (09:01)
[2016-12-17] MEDS: MORPHINE ER 100 MG TABLET PO SCH ×2 (09:01→20:42)
[2016-12-17] MEDS: CLOPIDOGREL 75 MG TABLET PO SCH (09:01)
--- NOTE | 2016-12-17 16:50 | Hospitalist Progress Note ---
Assessment and Plan (1) Salmonella enteritis Status: Acute Assessment and plan: Stool sample has resulted as salmonella Continue IV ciprofloxacin GI on board Now also with blood culture 1 of 2 growing salmonella Repeat blood cultures with no growth after one day Current Visit: Yes (2) Pulmonary hypertension, moderate to severe Status: Acute Current Visit: Yes (3) Hypokalemia Status: Acute Assessment and plan: Replacing Current Visit: Yes (4) Tick bite Status: Acute Assessment and plan: On doxycycline Current Visit: Yes (5) Pancytopenia Status: Acute Current Visit: Yes (6) Abdominal pain Status: Acute Assessment and plan: OSH CT read as dilated common bile duct Abdominal ultrasound here with only minimal enlargement LFTs ok GI consulted Treating salmonella in stool with cipro Current Visit: Yes Hospitalist: Subjective Interval history: No acute events overnight. Patient feeling better. Exam - Constitutional Vitals: Period Temp Pulse Resp BP Sys/Morocho Pulse Ox Last 24 Hr 97.1 F-98.0 F 81-91 17-18 92-140/66-72 94-96 General appearance: over weight - Head Head exam: Present: normocephalic, atraumatic - Eye Eye exam: Present: EOMI Pupils: Present: VERITO - ENT ENT exam: Present: normal exam - Neck Neck exam: Present: normal inspection - Respiratory Respiratory exam: Present: clear to auscultation bilaterally. Absent: rhonchi, wheezes - Cardiovascular Cardiovascular exam: Present: regular rate and rhythm - GI/Abdominal GI/Abdominal exam: Present: normal bowel sounds, soft. Absent: tenderness, rebound - Extremities Exam Extremities exam: Present: normal inspection - Back Exam Back exam: Present: normal inspection - Neurological Exam Neurological exam: Present: alert, oriented X3 - Psychiatric Psychiatric exam: Present: normal affect, normal mood - Skin Skin exam: Present: warm, intact Results - Labs CBC & BMP: 12/16/16 06:22 12/16/16 06:22 Specialty Discharge - Follow Up or Referrals
[2016-12-17] MEDS: ENOXAPARIN 40 MG/0.4 ML SYRINGE SUBCUT SCH (17:42)
[2016-12-17] MEDS: MIRTAZAPINE 15 MG TABLET PO SCH (20:42)
[2016-12-18] MEDS: DOXYCYCLINE HYCLATE INJ 100 MG in SODIUM CHLORIDE 0.9% 100 ML IV SCH ×2 (00:33→11:58)
[2016-12-18] MEDS: CIPROFLOXACIN INJ 400 MG in PREMIX 1 EACH IV SCH ×2 (04:22→16:27)
[2016-12-18] MEDS: CLOPIDOGREL 75 MG TABLET PO SCH (08:44)
[2016-12-18] MEDS: MORPHINE ER 100 MG TABLET PO SCH ×2 (08:44→20:39)
[2016-12-18] MEDS: DULoxetine 30 MG CAPSULE PO SCH ×2 (08:44→20:38)
[2016-12-18] MEDS: ASPIRIN EC 81 MG TABLET PO SCH (08:45)
[2016-12-18] MEDS: PANTOPRAZOLE 40 MG TABLET PO SCH (08:45)
[2016-12-18] MEDS: ENOXAPARIN 40 MG/0.4 ML SYRINGE SUBCUT SCH (15:34)
--- NOTE | 2016-12-18 15:56 | Hospitalist Progress Note ---
Assessment and Plan (1) Salmonella enteritis Status: Acute Assessment and plan: Stool sample has resulted as salmonella Continue IV ciprofloxacin GI on board Now also with blood culture 1 of 2 growing salmonella Repeat blood cultures with no growth after one day Current Visit: Yes (2) Pulmonary hypertension, moderate to severe Status: Acute Current Visit: Yes (3) Hypokalemia Status: Acute Assessment and plan: Replacing Current Visit: Yes (4) Tick bite Status: Acute Assessment and plan: On doxycycline Current Visit: Yes (5) Pancytopenia Status: Acute Current Visit: Yes (6) Abdominal pain Status: Acute Assessment and plan: OSH CT read as dilated common bile duct Abdominal ultrasound here with only minimal enlargement LFTs ok GI consulted Treating salmonella in stool with cipro Current Visit: Yes Hospitalist: Subjective Interval history: No acute events overnight. Patient doing well without complaints. Possible discharge soon. Exam - Constitutional Vitals: Period Temp Pulse Resp BP Sys/Morocho Pulse Ox Last 24 Hr 97.1 F-98.1 F 77-90 17-19 97-126/61-69 91-97 General appearance: normal weight - Head Head exam: Present: normocephalic, atraumatic - Eye Eye exam: Present: EOMI Pupils: Present: VERITO - ENT ENT exam: Present: normal exam - Neck Neck exam: Present: normal inspection - Respiratory Respiratory exam: Present: clear to auscultation bilaterally. Absent: rhonchi, wheezes - Cardiovascular Cardiovascular exam: Present: regular rate and rhythm - GI/Abdominal GI/Abdominal exam: Present: normal bowel sounds, soft. Absent: tenderness, rebound - Extremities Exam Extremities exam: Present: normal inspection - Back Exam Back exam: Present: normal inspection - Neurological Exam Neurological exam: Present: alert, oriented X3 - Psychiatric Psychiatric exam: Present: normal affect, normal mood - Skin Skin exam: Present: warm, intact Results - Labs CBC & BMP: 12/16/16 06:22 12/16/16 06:22 Specialty Discharge - Follow Up or Referrals
[2016-12-18] MEDS: MIRTAZAPINE 15 MG TABLET PO SCH (20:39)
[2016-12-19] MEDS: DOXYCYCLINE HYCLATE INJ 100 MG in SODIUM CHLORIDE 0.9% 100 ML IV SCH ×2 (00:21→12:40)
[2016-12-19] MEDS: CIPROFLOXACIN INJ 400 MG in PREMIX 1 EACH IV SCH (04:17)
--- NOTE | 2016-12-19 08:39 | Gastrointestinal Progress Note ---
<MarlonmarlineJosiane Liz - Last Filed: 12/19/16 08:37> Assessment and Plan (1) Abdominal pain Status: Acute Assessment and plan: 12/19-Abd pain resolved, tolerating diet well. No N/V/D. For possible discharge home today. Plan and addendum to follow by Dr Rodriguez. 12/16-no complaints of abdominal pain. Tolerating diet well. Records received and reviewed as noted below. Continue IV antibiotics at this time. Plan an addendum follow Dr. Rodriguez. 12/15-admitted 4 days ago with complaints of upper abdominal pain, nausea, vomiting and diarrhea. Initial report on CT scan as below, with dilated common bile duct and normal LFTs. Ultrasound on admission findings noted as below. LFTs remain unremarkable. Noted today to have positive for Salmonella on stool cultures with Cipro initiated. Vibramycin initiated for tick bite. Prior endoscopy done within the past [address] Rivera in [place]. Requesting results from [facility] ER visit prior to transfer as well as endoscopy records. Plan an addendum to followed by Dr. Rodriguez. Gastroenterology - PN: Subj Interval history: CC: Abdominal pain Pt is awake and alert sitting up on side of bed. States that he is feeling better and had a good weekend. He is denying any further pain. He is tolerating his diet well and denies any nausea or vomiting with this. He has only had one to two small stools daily and denies any diarrhea. Abdomen is soft, nontender. He is for possible discharge home today. ROS: Denies SOB or chest pain Exam (Progress Note) - Constitutional Vitals: Period Temp Pulse Resp BP Sys/Morocho Pulse Ox Last 24 Hr 96.9 F-98.1 F 75-88 17-88 98-152/58-77 92-97 General appearance: normal weight, no acute distress - Head Head exam: Present: normal inspection, normocephalic - Eye Eye exam: Present: other (lids and conjunctiva unremarkable). Absent: scleral icterus - ENT ENT exam: Present: normal exam, normal oropharynx - Neck Neck exam: Present: normal inspection - Respiratory Respiratory exam: Present: clear to auscultation bilaterally. Absent: rales, rhonchi, wheezes - Cardiovascular Cardiovascular exam: Present: regular rate and rhythm. Absent: diastolic murmur , JVD, systolic murmur - GI/Abdominal GI/Abdominal exam: Present: normal bowel sounds, soft. Absent: ascites, distended, mass, organomegaly, tenderness - Extremities Exam Extremities exam: Present: normal inspection, full ROM - Back Exam Back exam: Present: normal inspection - Neurological Exam Neurological exam: Present: alert, oriented X3 - Psychiatric Psychiatric exam: Present: normal affect, normal mood - Skin Skin exam: Present: normal color, warm, dry Results - Labs CBC & BMP: 12/16/16 06:22 12/16/16 06:22 Lab Results: I have reviewed the past 24 hour labs Specialty Discharge - Follow Up or Referrals <Berry Rodriguez - Last Filed: 12/19/16 21:33> Exam (Progress Note) - Constitutional Vitals: Period Temp Pulse Resp BP Sys/Morocho Pulse Ox Last 24 Hr 96.9 F-97.4 F 78-108 17-88 107-152/58-70 92-97 Results - Labs CBC & BMP: 12/16/16 06:22 12/16/16 06:22
--- NOTE | 2016-12-19 09:18 | Discharge Summary ---
<Elsi Mccracken - Last Filed: 12/19/16 09:09> Hospital Course - Hospital Course Hospital Course: This is a 76-year-old male that presented to [facility] as a direct admission from [facility] on December 12, 2016 for the evaluation of nausea, vomiting, and diarrhea. Patient has a medical history significant for cardiovascular disease, remote nicotine abuse, myocardial infarction, carotid stenosis, bronchitis, chronic obstructive pulmonary disease , pulmonary fibrosis, chronic neck and back pain, and anemia. Patient surgical history significant for right total knee replacement, thoracic transdermal stimulator placement, and femoral popliteal bypass graft with stent placement to the left leg. The patient reported the onset of symptoms 3 days prior to presentation. The patient had recently gone on vacation and started experiencing the symptoms shortly after his return home. He reported a decrease in appetite, generalized weakness, profuse diarrhea, nausea, and vomiting. He presented to the ED at [facility] and was assessed. CT abdomen and pelvis at [facility] reported a dilated bile duct of 14.7 mm. The patient was subsequently transferred to [facility] for further evaluation. The patient was admitted to the hospitalist service for continuation of care. At the time of presentation, the patient was immediately assessed. Due to the severity of his presenting complaints, the sepsis bundle was initiated. An echocardiogram was ordered at the time of admission which reported normal left ventricular systolic function, ejection fraction 65%, grade 1/4 diastolic dysfunction, mild biatrial enlargement, mild mitral, aortic, and tricuspid regurgitation, and aortic sclerosis without stenosis. Abdominal ultrasound reported the extrahepatic bile duct was noted to have minimal enlargement however, no cholelithiasis or choledocholthiasis was clearly demonstrated. In addition, gallbladder wall thickening was also noted which was possibly reflected of acute or chronic cholecystitis. A gastroenterology consultation was requested. The patient was evaluated and recommendations were given. At the time of admission shaw cultures were obtained. On December 16, 2016 culture reports were culture or significant for Salmonella in both stool and blood. Empiric antibiotic coverage was continued and the patient's condition gradually improved. The patient's condition is stable. He has not experienced any significant overnight events. Today, we feel that he is indeed appropriate for discharge to follow-up with his primary care physician as indicated. Specialty Discharge - Follow Up or Referrals Discharge Plan - Discharge Data Disposition: Disch To Home/Self Care - Discharge Medications New Ciprofloxacin HCl [Ciprofloxacin Tab] 500 mg PO BID #20 tablet Continue Aspirin EC Tab 81 mg PO DAILY #30 tablet Ergocalciferol (Vitamin D2) [Vitamin D2] 50,000 unit PO Q7DAY Duloxetine HCl [Cymbalta] 60 mg PO BID Clopidogrel [Plavix] 75 mg PO DAILY Mirtazapine 30 mg PO BEDTIME Omeprazole 20 mg PO BID Rosuvastatin [Crestor] 10 mg PO DIRECTED Ondansetron Tab [Zofran Tab] 4 mg PO Q4HR PRN PRN Reason: Nausea Potassium Chloride Cap/Tab [K Dur] 20 meq PO DAILY Docusate Sodium Cap [Colace Cap] 100 mg PO DAILY PRN PRN Reason: Constipation Metoclopramide Tab [Reglan Tab] 30 mg PO ACHS Morphine Sulfate [Morphine Sulfate ER] 100 mg PO BID Discontinued Carvedilol [Coreg] 3.125 mg PO BID #60 tablet Furosemide Tab [Lasix Tab] 20 mg PO DAILY - Follow Up or Referral - Forms/Instructions Instructions: Salmonella Infection (GEN) Exam - Constitutional Vitals: Period Temp Pulse Resp BP Sys/[place] Pulse Ox Last 24 Hr 96.9 F-98.1 F 75-88 17-88 98-152/58-77 92-97 Discharge Results Procedures and tests throughout hospitalization: Pending Orders 12/12/16 17:36 Blood Culture Stat 12/12/16 17:44 Occult Blood, Stool Stat Stool Culture Stat 12/15/16 16:06 Blood Culture Routine Labs on day of discharge: Preliminary micro results at discharge 12/15/16 16:06 Blood Culture - Preliminary Blood No growth at 3 days 12/15/16 16:06 Blood Culture - Preliminary Blood No growth at 3 days 12/12/16 17:36 Blood Culture - Preliminary Blood Salmonella species 12/12/16 17:44 Stool Culture - Preliminary Stool Salmonella species DS: Provider Date of admission: 12/12/16 15:39 Primary care physician: . No PCP Attending physician on admission: Caroline Parker MD Consults: 12/12/16 16:34 Consult to Physical Therapy [CONS] Routine Reason for Physical Therapy: Evaluate and Treat 12/15/16 12:06 Consult to Physician [CONS] Routine Comment: distended GB and bile duct on CT from [facility] Consulting Provider: Berry Rodriguez Person Notified: Josiane Barreto Date Notified: 12/15/16 Time Notified: 14:08 Discharging clinician: Elsi Mccracken CNP <Hanna Pittman - Last Filed: 12/19/16 09:56> Hospital Course - Time spent with patient Time with patient DS: Greater than 30 minutes (35) Diagnosis - Discharge Diagnosis (1) Salmonella enteritis Status: Resolved (2) Pulmonary hypertension, moderate to severe Status: Chronic (3) Hypokalemia Status: Resolved (4) Tick bite Status: Resolved (5) Pancytopenia Status: Resolved (6) Abdominal pain Status: Resolved Discharge Plan - Discharge Data Condition at Discharge: Stable Discharge Diet: advance to your usual diet Activity: increase activity as tolerated Hygiene: no restrictions Weight Bearing at Discharge: weight bear as tolerated Contact your physician if you experience:: fever over 101, Nausea/Vomiting Exam - Constitutional General appearance: over weight - Head Head exam: Present: normocephalic, atraumatic - Eye Eye exam: Present: EOMI Pupils: Present: VERITO - ENT ENT exam: Present: normal exam - Neck Neck exam: Present: normal inspection - Respiratory Respiratory exam: Present: clear to auscultation bilaterally. Absent: rhonchi, wheezes - Cardiovascular Cardiovascular exam: Present: regular rate and rhythm - GI/Abdominal GI/Abdominal exam: Present: normal bowel sounds, soft. Absent: tenderness, rebound - Extremities Exam Extremities exam: Present: normal inspection - Back Exam Back exam: Present: normal inspection - Neurological Exam Neurological exam: Present: alert, oriented X3 - Psychiatric Psychiatric exam: Present: normal affect, normal mood - Skin Skin exam: Present: warm, intact
[2016-12-19] MEDS: CLOPIDOGREL 75 MG TABLET PO SCH (09:41)
[2016-12-19] MEDS: PANTOPRAZOLE 40 MG TABLET PO SCH (09:41)
[2016-12-19] MEDS: MORPHINE ER 100 MG TABLET PO SCH (09:41)
[2016-12-19] MEDS: ROSUVASTATIN 10 MG TABLET PO SCH (09:41)
[2016-12-19] MEDS: ASPIRIN EC 81 MG TABLET PO SCH (09:41)
[2016-12-19] MEDS: DULoxetine 30 MG CAPSULE PO SCH (09:41)
[2016-12-19 11:38] VITALS: BP 119/70
== END 2016-12-19 14:30 | disposition home or self-care (01) | DRG 372 ==
LOC: SUATTDRO 15:39 → N.CC 15:39 → N.5E 12-13 12:26
PROVIDERS: ADMIT Internal Medicine; ATTEND Internal Medicine